=== PATIENT | female | born 1935 | race Caucasian/White ===

== ENCOUNTER 2016-09-22 11:50 | Emergency (ER) | payer MEDICARE, BC ==
[2016-09-22 12:31] LABS: BASOPHILS % (AUTO) 1 % (0-3); EOSINOPHILS % (AUTO) 2 % (0-9); HEMATOCRIT 46 % (35-47); MEAN CORPUSCULAR HGB CONC 33.4 gm/dl (32.0-36.0); MONOCYTES % (AUTO) 9.2 % (0-12); NEUTROPHILS % (AUTO) 69.4 % (37-80)
[2016-09-22 12:33] LABS: MEAN CORPUSCULAR VOLUME 80 fL (81-99)
[2016-09-22 12:39] LABS: APPEARANCE,URINE Clear; BILIRUBIN,URINE 1+ (NEGATIVE); COLOR,URINE Dark yellow; GLUCOSE, URINE (UA) NEGATIVE (NEGATIVE); KETONES,URINE NEGATIVE (NEGATIVE); LEUKOCYTE ESTERASE ,URINE 1+ (NEGATIVE); NITRATE,URINE NEGATIVE (NEGATIVE); OCCULT BLOOD,URINE TRACE INTACT (NEG-TRACE); UROBILINOGEN,URINE 0.2 (0.2-1.0 EU)
[2016-09-22 12:44] LABS: ALBUMIN 3.6 gm/dl (3.4-5.0); CALCIUM 10.9 mg/dl (8.5-10.1); ICTOTEST,URINE NEGATIVE (NEGATIVE); POTASSIUM 3.5 mMol/L (3.5-5.1); RBC,URINE 0-2 (0-3AV/HPF); WBC,URINE 40-50 (0-5AV/HPF)
[2016-09-22 12:55] VITALS: BP 173/106; PULSE 107; RESP 16; TEMP 98; O2SAT 95
== END 2016-09-22 13:42 | disposition home or self-care (01) | DRG 690 ==
LOC: ED 11:50
DX: N30.00 Acute cystitis without hematuria (principal)
CPT/HCPCS: 36415; 80053; 81001; 85025; 87088; 99282; 99283

== ENCOUNTER 2016-09-24 16:19 | Emergency (ER) | payer MEDICARE, BC ==
[2016-09-24 17:53] VITALS: TEMP 98.1
[2016-09-24 17:54] LABS: BASOPHILS % (AUTO) 1 % (0-3); EOSINOPHILS % (AUTO) 1 % (0-9); HEMATOCRIT 43 % (35-47); MEAN CORPUSCULAR HGB CONC 32.7 gm/dl (32.0-36.0); MEAN CORPUSCULAR VOLUME 82 fL (81-99); MONOCYTES % (AUTO) 9.2 % (0-12); NEUTROPHILS % (AUTO) 76.8 % (37-80)
[2016-09-24 18:10] LABS: ALBUMIN 3.4 gm/dl (3.4-5.0); CALCIUM 11.3 mg/dl (8.5-10.1); POTASSIUM 3.8 mMol/L (3.5-5.1)
[2016-09-24] MEDS ORDERED: KETOROLAC TROMETHAMINE 30 MG/ML SOL IM ONE (18:41)
[2016-09-24] MEDS ORDERED: TRAMADOL HYDROCHLORIDE 50 MG TAB PO ONE (18:42)
[2016-09-24] MEDS ORDERED: TRAMADOL HYDROCHLORIDE 50 MG TAB ONE (18:50)
[2016-09-24] MEDS ORDERED: KETOROLAC TROMETHAMINE 30 MG/ML SOL ONE (18:51)
[2016-09-24 19:41] VITALS: BP 155/91; PULSE 103; RESP 20; O2SAT 92
== END 2016-09-24 19:54 | disposition home or self-care (01) | DRG 948 ==
LOC: ED 16:19
DX: R41.0 Disorientation, unspecified (principal); M54.6 Pain in thoracic spine; Z86.73 Personal history of transient ischemic attack (TIA), and cerebral infarction without residual deficits
CPT/HCPCS: 70450; 71010; 80053; 84484; 85025; 93005; 99285; J1885